=== PATIENT | female | born 1975 | race Hispanic/Latino ===

== ENCOUNTER → 2022-04-26 | Day surgery (SDC) | payer BC ==
--- NOTE | 2022-04-26 12:07 | RAD REPORT ---
EXAM DESCRIPTION: US - Guided FNA Non Breast - 04/26/2022 11:05 am CLINICAL HISTORY: E04.1 COMPARISON: No comparisons FINDINGS: Preoperative diagnosis: Right thyroid nodule. Post operative diagnosis: Same. Conscious Sedation: None Fluoroscopy time: None Contrast used: None Estimated blood loss: Minimal Specimens:25 gauge FNA needles x5 The right neck was prepped and draped in the usual sterile fashion. 1% lidocaine was infiltrated into the subcutaneous tissues for local anesthesia. Real time ultrasound scanning of the right thyroid de monstrated 2 cm right thyroid nodule containing microcalcifications. Under ultrasound guidance, utili zing multiple 25 gauge FNA needles, 5 specimens were obtained of this lesion and sent to pathology fo r evaluation. There were no complications. IMPRESSION: Successful ultrasound-guided right thyroid nodule FNA procedure.
== END ==
LOC: SUPCPDRO 10:13 → FNA 10:13
PROVIDERS: ATTEND Family Medicine
PROC: 0GBH3ZX Excision of Right Thyroid Gland Lobe, Percutaneous Approach, Diagnostic (ICD-10-PCS; principal; 2022-04-26)
DX: E04.1 Nontoxic single thyroid nodule (principal)
CPT/HCPCS: 88162; 88305

== ENCOUNTER 2022-06-07 06:43 | Day surgery (SDC) | payer BC ==
[2022-06-07] MEDS ORDERED: LIDOCAINE 1% W/EPI 1:100,000 30 ML VIAL ONE (07:11)
[2022-06-07] MEDS ORDERED: Ringers Lactate 1,000 ML IV ONE ×2 (07:16→09:46)
[2022-06-07] MEDS ORDERED: MIDAZOLAM HCL 2 MG/2 ML INJ ONE (07:23)
[2022-06-07] MEDS ORDERED: FENTANYL CITR 100 MCG/2 ML ONE ×4 (07:23→09:42)
[2022-06-07] MEDS ORDERED: ROCURONIUM 50 MG/5 ML VIAL IV ONE (07:23)
[2022-06-07] MEDS ORDERED: LIDOCAINE 2% MPF 5 ML VIAL ONE ×2 (07:23→09:38)
[2022-06-07] MEDS ORDERED: propofoL 200 MG/20 ML VIAL IV ONE ×2 (07:23→09:41)
[2022-06-07] MEDS ORDERED: LIDOCAINE HCL JELLY 2% 6 ML SYRINGE TOP ONE (07:38)
[2022-06-07] MEDS ORDERED: dexAMETHasone 10 MG/ML VIAL ONE (07:56)
[2022-06-07] MEDS ORDERED: KETOROLAC 30 MG/ML INJ ONE (07:56)
[2022-06-07] MEDS ORDERED: ONDANSETRON 4 MG/2 ML VIAL ONE (08:05)
[2022-06-07] MEDS ORDERED: CEFAZOLIN SODIUM 1 GM/VIAL ONE (08:12)
[2022-06-07] MEDS ORDERED: Phenylephrine HCl 10 MG/ML 1 ML VIAL ONE (08:19)
[2022-06-07] MEDS ORDERED: NS 0.9% VIAL 10 ML ONE (08:19)
[2022-06-07] MEDS ORDERED: Mastisol Adhesive Liq ONE (09:51)
[2022-06-07] MEDS ORDERED: SUCCINYLCHOLINE 20 MG/ML (10 ML) IV ONE (10:07)
[2022-06-07] MEDS ORDERED: ONDANSETRON 4 MG/2 ML VIAL IV PRN (10:28)
[2022-06-07] MEDS ORDERED: HYDROCODONE/APAP 7.5/325 MG TAB PO PRN (10:29)
[2022-06-07] MEDS ORDERED: CALCIUM CARBONATE CHEW 500MG TAB PO SCH (10:30)
[2022-06-07] MEDS ORDERED: LEVOTHYROXINE SOD 0.1 MG TAB PO SCH (10:30)
[2022-06-07] MEDS ORDERED: LABETALOL 20 MG/4ML SYRINGE IV ONE (10:35)
[2022-06-07 11:13] VITALS: TEMP 98
[2022-06-07] MEDS: ACETAMINOPHEN 325 MG TABLET PO PRN (12:15)
[2022-06-07] MEDS ORDERED: ACETAMINOPHEN 325 MG TABLET ONE ×2 (12:15→16:36)
[2022-06-07 14:54] VITALS: BP 141/82; O2SAT 96
[2022-06-07] MEDS ORDERED: CEFAZOLIN 2 GM in NA CHLORIDE 0.9% 100 ML IVPB SCH (17:00)
[2022-06-07] MEDS ORDERED: ENOXAPARIN 40 MG/0.4 ML SQ ONE (17:00)
--- NOTE | 2022-06-08 15:28 | OP ---
Date of Procedure: 06/07/2022 Surgeon: MIGUEL ANGEL CASTRO Preoperative Diagnoses: 1. 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 2. Hyperthyroidism. Postoperative Diagnoses: 1. 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 2. Hyperthyroidism. Procedures: 1. Total thyroidectomy with recurrent laryngeal nerve monitoring. 2. Central compartment level 6 selective neck dissection. Anesthesia: General endotracheal anesthesia was administered. I utilized a nerve integrity monitoring system and NIMS endotracheal tube. She was intubated with a 7.0 tube. I also infiltrated approximately 10 mL of 1% lidocaine with 1:100,000 epinephrine at the incision site. Estimated Blood Loss: Scant, less than 5 mL. Specimens: The entire thyroid gland was removed en bloc with a silk suture placed into the right thyroid lobe. Several lymph nodes were removed and also submitted to pathology. Findings: Right greater than left thyroid lobe hypertrophy with a large right thyroid lobe nodule. I identified 2-3 lymph nodes during the dissection and those were removed separately and handed off for pathology. Three parathyroid glands were identified and the remaining parathyroid gland was presumably in a large amount of fat that was located at the right inferior lobe just posterior to the right inferior lobe of the thyroid gland. Two lymph nodes were located, 1 inferior midline just posterior to the thyroid gland inferior midline and then 1 lymph node was located right inferior lobe and another lymph node was located right lateral neck just lateral to the lateral lobe. Complications: None. Disposition: Stable. The patient tolerated the procedure well. Indication For Procedure: The patient is a pleasant 47-year-old female, who presented to my outpatient clinic after having a fine-needle aspiration of the nodule that was located in the right thyroid lobe, which demonstrated papillary thyroid carcinoma. The patient was also taking 10 mg of methimazole for hyperthyroidism. After detailed discussion of options, it was recommended that she have a total thyroidectomy with central neck lymph node dissection. She may also need radioactive iodine postsurgically and this was discussed. She understood, all questions were answered. Risks versus benefits and complications were explained in detail and a consent form was signed, which was placed on the chart. Description Of Procedure: The patient was transferred from the preoperative holding area to the operative suite by Department of Anesthesia, placed on the operating table supine, sedated and intubated in normal fashion with a NIMS endotracheal tube. I infiltrated approximately 10 mL of 1% lidocaine with 1:100,000 epinephrine at the incision site and then the patient was sterilely prepped and draped. An incision was made with a #15 blade scalpel approximately 2 cm above the sternal notch in a skin crease. The incision was approximately 3 cm in length and the incision was made to the subcutaneous fat and then I switched to monopolar electrocautery on the twentieth setting of coagulation to continue dissection down to the subplatysmal area of the neck. I then used double prong skin hooks to retract the tissue away and I developed my subplatysmal flaps with hemostat, DeBakey forceps and the thyroid LigaSure. Once the flaps were developed, I then located the straps where the median raphae was divided utilizing the LigaSure. Posteriorly, I could identify the thyroid fascia and this was divided utilizing the LigaSure and then I started on the right side of the lateral lobe and dissected the fascia off the right lobe of the thyroid gland utilizing the LigaSure taking care to avoid the parathyroid glands and recurrent laryngeal nerve. I then dissected the right thyroid lobe in the same fashion by starting at the lateral lobe and releasing the fascia with the LigaSure and then working my way to the midline neck with the LigaSure taking care to avoid the parathyroid glands and the recurrent laryngeal nerve. Then the left lobe of thyroid was released laterally in the same fashion utilizing the Ligasure device. The superior and inferior parathyroid glands were visualized and I dissected medially, staying close to the thyroid gland. I was able to carefully dissect medial to Cano's ligament. The nerve was then stimulated bilaterally utilizing the nerve monitoring needle and excellent stimulation was obtained. I then divided Cano ligament midline utilizing the LigaSure and the thyroid gland was then handed off the field and a suture was placed into the right thyroid lobe. The wound bed was irrigated with sterile saline and then when Valsalva was performed, there was no evidence of bleeding. I then carefully looked for all areas for hemostasis and hemostasis was achieved with bipolar cautery. I then placed Avitene into bilateral neck for hemostasis. I then reapproximated the strap muscle with 1 suture, which was a 3-0 Vicryl suture in the midline. I then reapproximated the platysma muscle utilizing 3-0 Vicryl in a simple interrupted fashion. A Mansfield drain was placed on the left lateral neck and then I reapproximated the dermis and epidermis in a subcuticular fashion with 4-0 Monocryl. Steri-Strips were placed and then gauze and light dressing were placed. She tolerated the procedure well and will be discharged home on levothyroxine 100 mcg to start taking daily and to discontinue the methimazole and to start Tums 3 tablets t.i.d. and she will follow up in 2 days for drain removal and further instructions. DENIS/DOM Voice ID: [id number] Report ID: [id number]
== END 2022-06-07 17:28 | disposition home or self-care (01) ==
LOC: OR 06:43
PROVIDERS: ATTEND Otolaryngology Facial Plastic Surgery
PROC: 07T10ZZ Resection of Right Neck Lymphatic, Open Approach (ICD-10-PCS; 2022-06-07)
PROC: 0GTK0ZZ Resection of Thyroid Gland, Open Approach (ICD-10-PCS; principal; 2022-06-07 07:30)
DX: C73 Malignant neoplasm of thyroid gland (principal); E05.90 Thyrotoxicosis, unspecified without thyrotoxic crisis or storm; R03.0 Elevated blood-pressure reading, without diagnosis of hypertension
CPT/HCPCS: 88307; 60252; J2704 ×2; J0330; J2370; J2001 ×2; J1650; J2250; J3010 ×4; J1100; A4216; J7120 ×2; J2405; J0690